=== PATIENT | female | born 1990 | race Caucasian/White ===

== ENCOUNTER 2020-08-11 10:35 | Inpatient (IN) ==
[2020-08-11] MEDS: LACTATED RINGERS 1,000 ML IV SCH ×2 (11:40→12:41)
[2020-08-11] MEDS ORDERED: BUTORPHANOL 2 MG/ML VIAL IV PRN (11:45)
[2020-08-11] MEDS ORDERED: BUTORPHANOL 1 MG/ML VIAL IV PRN (11:45)
[2020-08-11] MEDS ORDERED: OXYTOCIN/LR 20 UNIT/1,000 ML BAG IV PRN (11:45)
[2020-08-11] MEDS ORDERED: ONDANSETRON 4 MG/2 ML VIAL IV PRN ×2 (11:45→17:36)
[2020-08-11] MEDS ORDERED: hydrOXYzine HCL 25 MG/1 ML VIAL IM PRN (12:08)
[2020-08-11] MEDS ORDERED: PROMETHAZINE 25 MG/1 ML VIAL IM ONE (12:08)
[2020-08-11] MEDS ORDERED: ePHEDrine 50 MG/ML VIAL IV PRN (12:08)
[2020-08-11] MEDS ORDERED: ONDANSETRON 4 MG/2 ML VIAL IV ONE (12:08)
[2020-08-11] MEDS ORDERED: LACTATED RINGERS 1,000 ML IV ONE (12:08)
[2020-08-11] MEDS ORDERED: diphenhydrAMINE 50 MG/1 ML VIAL IV PRN ×2 (12:08)
[2020-08-11] MEDS ORDERED: NALOXONE 0.4 MG/ML VIAL IV PRN (12:08)
[2020-08-11] MEDS ORDERED: FAMOTIDINE 20 MG/2 ML VIAL IV ONE (12:08)
[2020-08-11 12:09] LABS: Basophils % 0.3 % (0.0-0.8); Eosinophils % 0.1 % (0.00-10.9); Hematocrit 40.9 VOL% (35.7-47.0); Hemoglobin 13.7 GM/DL (12.0-16.0); Immature Granulocytes % 0.5 %; Immature Granulocytes Absolute 0.06 #; Lymphocytes # 2.1 10*3/uL (1.4-4.0); Lymphocytes % 18.5 % (21.3-54.2); Mean Corpuscular HGB Conc 33.5 GM/DL (32-36); Mean Corpuscular Volume 90.1 FL (87-102); Mean Platelet Volume 11.8 FL (9.6-12.0); Monocytes % 7.3 % (1.7-12.7); Neutrophils % 73.3 % (38.7-73.9); Platelet Count 221 T/CUMM (130-400); Red Blood Count 4.54 MC/CUMM (3.8-5.5); Red Cell Distribution Width 13.2 % (9.3-17.3); White Blood Count 11.3 T/CUMM (4-12)
[2020-08-11 12:24] LABS: INR 0.9; PT Patient Result 9.4 SECS (9.8-11.9); Partial Thromboplastin Time 23.9 SECS (23.9-33.8)
[2020-08-11 12:27] LABS: Alanine Aminotransferase 27 U/L (13-56); Albumin 2.8 G/DL (3.4-5.0); Alkaline Phosphatase 127 U/L (45-117); Aspartate Amino Transferase 29 U/L (0-37); Bilirubin,Total < 0.39 MG/DL (0.2-1.0); Blood Urea Nitrogen 7 MG/DL (7-18); Calcium 8.6 MG/DL (8.5-10.1); Estimated Glom Filtration Rate 135 ML/MIN; Glucose 87 MG/DL (74-106); Osmolality,Calculated 269.8 MOS/KG (273-304); Total Protein 6.9 G/DL (6.4-8.3); Uric Acid 3.5 MG/DL (2.6-6.0)
[2020-08-11] MEDS ORDERED: fentaNYL 2 MCG/ROPIV 0.2% EPID 100 ML EPIDURAL SCH (12:30)
[2020-08-11 12:53] LABS: Bacteria,Urine Few /HPF (Few); Bilirubin,Urine Negative (Negative); Blood, Urine Moderate mg/dL (Negative); Glucose,Urine (UA) Negative (Negative); Ketones,Urine Negative (Negative); Mucus,Urine Occasional /LPF (Occasional); Nitrite,Urine Negative (Negative); Protein,Urine Negative; RBC,Urine 4 /HPF (0-4); Squamous Epithelial Cell,Urine Occasional /HPF (0-10); Urine Appearance CLEAR (Clear); Urine Color Yellow (Yellow); Urine Specific Gravity 1.006 (1.001-1.035); Urine Urobilinogen < 2.0 EU/DL (0.2-1.0); WBC,Urine 3 /HPF (0-6)
[2020-08-11] MEDS ORDERED: LIDOCAINE 1% 50 ML VIAL ONE (15:48)
[2020-08-11] MEDS ORDERED: miSOPROStoL 200 MCG TABLET ONE (15:48)
[2020-08-11] MEDS ORDERED: CARBOPROST TROMETHAMINE 250 MCG/ML AMP IM ONE (15:48)
[2020-08-11] MEDS ORDERED: SODIUM CHLORIDE 0.9% 0 ML IV ONE (15:48)
[2020-08-11] MEDS ORDERED: TRANEXAMIC ACID 1,000 MG/10 ML VIAL ONE (15:49)
[2020-08-11 17:15] LABS: Bilirubin,Urine Negative (Negative); Blood, Urine Negative (Negative); Glucose,Urine (UA) Negative (Negative); Ketones,Urine Negative (Negative); Mucus,Urine Occasional /LPF (Occasional); Nitrite,Urine Negative (Negative); Protein,Urine Negative; Urine Appearance CLEAR (Clear); Urine Color Colorless (Yellow); Urine Specific Gravity 1.002 (1.001-1.035); Urine Urobilinogen < 2.0 EU/DL (0.2-1.0)
[2020-08-11] MEDS ORDERED: oxyCODONE/ACETAMINOPHEN 5-325 MG TABLET PO PRN (17:36)
[2020-08-11] MEDS ORDERED: BENZOCAINE 20%/MENTHOL 0.5% SPRAY 56 GM CAN TOP PRN (17:36)
[2020-08-11] MEDS ORDERED: ACETAMINOPHEN 325 MG TABLET PO PRN (17:36)
[2020-08-11] MEDS ORDERED: LANOLIN 50% CREAM 0.3 OZ TUBE TOP PRN (17:36)
[2020-08-11] MEDS ORDERED: MEASLES/MUMPS/RUBELLA VACCINE 0.5 ML VIAL SUBCUT ONE (17:36)
[2020-08-11] MEDS ORDERED: RHO(D) IMMUNE GLOBULIN 300 MCG SYRINGE IM ONE (17:36)
[2020-08-11] MEDS ORDERED: WITCH HAZEL PADS 100/JAR TOP PRN (17:36)
[2020-08-11] MEDS ORDERED: HYDROCORTISONE 2.5% RECTAL CREAM 30 GM TUBE TOP PRN (17:36)
[2020-08-11] MEDS ORDERED: BISACODYL 10 MG SUPP RECTAL PRN (17:36)
[2020-08-11] MEDS ORDERED: OXYTOCIN/LR 20 UNIT/1,000 ML BAG IV ONE (17:36)
[2020-08-11] MEDS ORDERED: DIPH/TET/ACEL PERT BOOSTER VACCINE 0.5 ML VIAL IM ONE (17:36)
[2020-08-11 17:49] LABS: Cord Arterial Blood HCO3 18.9 MMOL/L
[2020-08-11 17:52] LABS: Cord Venous Blood HCO3 19.3 MMOL/L; Cord Venous Blood PCO2 43.7 MMHG; Cord Venous Blood PO2 27.1
[2020-08-11] MEDS: oxyCODONE/ACETAMINOPHEN 5-325 MG TABLET PO PRN (19:38)
[2020-08-11] MEDS: IBUPROFEN 800 MG TABLET PO PRN (19:38)
[2020-08-11] MEDS: DOCUSATE SODIUM 100 MG CAPSULE PO SCH (21:32)
[2020-08-12] MEDS: IBUPROFEN 800 MG TABLET PO PRN ×3 (01:12→19:35)
[2020-08-12 06:01] LABS: Basophils % 0.2 % (0.0-0.8); Eosinophils # 0.1 10*3/uL (0.0-0.87); Eosinophils % 0.5 % (0.00-10.9); Hematocrit 30.4 VOL% (35.7-47.0); Hemoglobin 10.3 GM/DL (12.0-16.0); Immature Granulocytes % 0.5 %; Immature Granulocytes Absolute 0.06 #; Lymphocytes # 2.3 10*3/uL (1.4-4.0); Lymphocytes % 18.3 % (21.3-54.2); Mean Corpuscular HGB Conc 33.9 GM/DL (32-36); Mean Corpuscular Volume 90.5 FL (87-102); Monocytes % 8.7 % (1.7-12.7); Neutrophils % 71.8 % (38.7-73.9); Platelet Count 171 T/CUMM (130-400); Red Blood Count 3.36 MC/CUMM (3.8-5.5); Red Cell Distribution Width 13.3 % (9.3-17.3); White Blood Count 12.6 T/CUMM (4-12)
[2020-08-12] MEDS: oxyCODONE/ACETAMINOPHEN 5-325 MG TABLET PO PRN ×2 (08:08→19:41)
[2020-08-12] MEDS: DOCUSATE SODIUM 100 MG CAPSULE PO SCH ×2 (08:10→21:12)
[2020-08-13] MEDS ORDERED: INFLUENZA VIRUS VACCINE 0.5 ML SYRINGE IM ONE (06:00)
[2020-08-13 07:58] VITALS: BP 132/78
[2020-08-13] MEDS: DOCUSATE SODIUM 100 MG CAPSULE PO SCH (08:43)
[2020-08-13] MEDS: IBUPROFEN 800 MG TABLET PO PRN (08:45)
== END 2020-08-13 11:35 | disposition home or self-care (01) | DRG 807 ==
LOC: N.LDOUT 10:35 → N.LD 10:42 → N.OB 21:23
PROVIDERS: ADMIT Obstetrics & Gynecology; ATTEND Specialist

== ENCOUNTER 2022-10-28 14:28 | Inpatient (IN) ==
[2022-10-28] MEDS ORDERED: miSOPROStoL 200 MCG TABLET RECTAL PRN (14:47)
[2022-10-28] MEDS ORDERED: TRANEXAMIC ACID 1,000 MG in SODIUM CHLORIDE 0.9% 100 ML IV PRN (14:47)
[2022-10-28] MEDS ORDERED: CARBOPROST TROMETHAMINE 250 MCG/ML AMP IM PRN (14:47)
[2022-10-28] MEDS ORDERED: METHYLERGONOVINE 0.2 MG/1 ML AMP IM PRN (14:47)
[2022-10-28] MEDS ORDERED: ONDANSETRON 4 MG/2 ML VIAL IV PRN (14:47)
[2022-10-28] MEDS ORDERED: OXYTOCIN/LR 20 UNIT/1,000 ML BAG IV ONE (14:47)
[2022-10-28] MEDS ORDERED: LACTATED RINGERS 500 ML IV PRN (14:47)
[2022-10-28] MEDS: BETAMETH SODIUM PHOS/ACETATE 30 MG/5 ML VIAL IM SCH (15:11)
[2022-10-28 15:26] LABS: Basophils % 0.3 % (0.0-0.8); Eosinophils % 0.2 % (0.00-10.9); Hematocrit 37.8 VOL% (35.7-47.0); Hemoglobin 12.8 GM/DL (12.0-16.0); Immature Granulocytes % 0.5 %; Immature Granulocytes Absolute 0.05 #; Lymphocytes # 2.1 10*3/uL (1.4-4.0); Mean Corpuscular HGB Conc 33.9 GM/DL (32-36); Mean Corpuscular Volume 89.6 FL (87-102); Mean Platelet Volume 11.7 FL (9.6-12.0); Monocytes # 0.8 10*3/uL (0.11-0.8); Monocytes % 8.2 % (1.7-12.7); Neutrophils % 67.8 % (38.7-73.9); Platelet Count 190 T/CUMM (130-400); Red Blood Count 4.22 MC/CUMM (3.8-5.5); Red Cell Distribution Width 13.1 % (9.3-17.3); White Blood Count 9.2 T/CUMM (4-12)
[2022-10-28] MEDS ORDERED: AMPICILLIN INJ 2,000 MG in SODIUM CHLORIDE 0.9% 100 ML IV ONE ×2 (20:00→21:30)
[2022-10-28] MEDS: LACTATED RINGERS 1,000 ML IV SCH (21:13)
[2022-10-28] MEDS ORDERED: ZALEPLON 5 MG CAPSULE PO PRN (21:29)
[2022-10-29] MEDS: AMPICILLIN INJ 1,000 MG in SODIUM CHLORIDE 0.9% 100 ML IV SCH ×3 (01:19→09:16)
[2022-10-29] MEDS: BETAMETH SODIUM PHOS/ACETATE 30 MG/5 ML VIAL IM SCH (02:51)
[2022-10-29] MEDS ORDERED: OXYTOCIN/LR 20 UNIT/1,000 ML BAG IV SCH (04:30)
[2022-10-29] MEDS ORDERED: ePHEDrine 50 MG/ML VIAL IV PRN (05:00)
[2022-10-29] MEDS ORDERED: FAMOTIDINE 20 MG/2 ML VIAL IV ONE (05:00)
[2022-10-29] MEDS ORDERED: CITRIC ACID/SODIUM CITRATE 30 ML UDCUP PO ONE (05:00)
[2022-10-29] MEDS ORDERED: hydrOXYzine HCL 25 MG/1 ML VIAL IM PRN (05:00)
[2022-10-29] MEDS ORDERED: diphenhydrAMINE 50 MG/1 ML VIAL IV PRN ×2 (05:00)
[2022-10-29] MEDS ORDERED: PROMETHAZINE 25 MG/1 ML VIAL IM ONE (05:00)
[2022-10-29] MEDS ORDERED: ONDANSETRON 4 MG/2 ML VIAL IV ONE (05:00)
[2022-10-29] MEDS ORDERED: NALOXONE 0.4 MG/ML VIAL IV PRN (05:00)
[2022-10-29] MEDS ORDERED: fentaNYL 2 MCG/ROPIV 0.2% EPID 100 ML EPIDURAL SCH (05:00)
[2022-10-29 08:25] LABS: Bilirubin,Urine Negative (Negative); Blood, Urine Negative (Negative); Glucose,Urine (UA) Negative (Negative); Ketones,Urine 80 mg/dL (Negative); Mucus,Urine Occasional /LPF (Occasional); Nitrite,Urine Negative (Negative); Protein,Urine Negative (Negative); RBC,Urine 1 /HPF (0-4); Urine Appearance Clear (Clear); Urine Color Yellow (Yellow); Urine Specific Gravity 1.025 (1.001-1.035); Urine Urobilinogen 0.2 eU/dL (<2.0)
[2022-10-29] MEDS: LACTATED RINGERS 1,000 ML IV SCH (09:51)
[2022-10-29] MEDS ORDERED: miSOPROStoL 200 MCG TABLET ONE (11:48)
[2022-10-29] MEDS ORDERED: TRANEXAMIC ACID 1,000 MG/10 ML VIAL ONE (11:48)
[2022-10-29] MEDS ORDERED: CARBOPROST TROMETHAMINE 250 MCG/ML AMP IM ONE (11:49)
[2022-10-29] MEDS ORDERED: METHYLERGONOVINE 0.2 MG/1 ML AMP ONE (11:49)
[2022-10-29] MEDS ORDERED: SODIUM CHLORIDE 0.9% 0 ML IV ONE (11:49)
[2022-10-29 13:26] LABS: Cord Venous Blood HCO3 19.4 MMOL/L; Cord Venous Blood PCO2 41.3 MMHG; Cord Venous Blood PO2 30.5
[2022-10-29] MEDS ORDERED: LANOLIN 50% CREAM 0.3 OZ TUBE TOP PRN (17:19)
[2022-10-29] MEDS ORDERED: BISACODYL 10 MG SUPP RECTAL PRN (17:19)
[2022-10-29] MEDS ORDERED: BENZOCAINE 20%/MENTHOL 0.5% SPRAY 56 GM CAN TOP PRN (17:19)
[2022-10-29] MEDS ORDERED: DIPH/TET/ACEL PERT BOOSTER VACCINE 0.5 ML VIAL IM ONE (17:19)
[2022-10-29] MEDS ORDERED: ACETAMINOPHEN 325 MG TABLET PO PRN (17:19)
[2022-10-29] MEDS ORDERED: ONDANSETRON 4 MG/2 ML VIAL IV PRN (17:19)
[2022-10-29] MEDS ORDERED: RHO(D) IMMUNE GLOBULIN 300 MCG SYRINGE IM ONE (17:19)
[2022-10-29] MEDS ORDERED: MEASLES/MUMPS/RUBELLA VACCINE 0.5 ML VIAL SUBCUT ONE (17:19)
[2022-10-29] MEDS ORDERED: OXYTOCIN/LR 20 UNIT/1,000 ML BAG IV ONE (17:19)
[2022-10-29] MEDS ORDERED: IBUPROFEN 800 MG TABLET PO PRN (17:19)
[2022-10-29] MEDS ORDERED: WITCH HAZEL PADS 100/JAR TOP PRN (17:19)
[2022-10-29] MEDS ORDERED: oxyCODONE/ACETAMINOPHEN 5-325 MG TABLET PO PRN ×2 (17:19)
[2022-10-29] MEDS ORDERED: HYDROCORTISONE 2.5% RECTAL CREAM 30 GM TUBE TOP PRN (17:19)
[2022-10-29] MEDS ORDERED: HYDROCORTISONE 1% CREAM 28 GM TUBE TOP PRN (19:01)
[2022-10-29] MEDS: DOCUSATE SODIUM 100 MG CAPSULE PO SCH (21:15)
[2022-10-30 05:31] LABS: Basophils % 0.1 % (0.0-0.8); Hematocrit 33.2 VOL% (35.7-47.0); Hemoglobin 11.1 GM/DL (12.0-16.0); Immature Granulocytes % 0.9 %; Immature Granulocytes Absolute 0.14 #; Lymphocytes # 1.4 10*3/uL (1.4-4.0); Mean Corpuscular HGB Conc 33.4 GM/DL (32-36); Mean Platelet Volume 12.2 FL (9.6-12.0); Monocytes # 1.1 10*3/uL (0.11-0.8); Platelet Count 172 T/CUMM (130-400); Red Blood Count 3.61 MC/CUMM (3.8-5.5); Red Cell Distribution Width 13.3 % (9.3-17.3)
[2022-10-30] MEDS: DOCUSATE SODIUM 100 MG CAPSULE PO SCH ×2 (10:00→22:26)
[2022-10-31 08:33] LABS: Basophils % 0.3 % (0.0-0.8); Eosinophils % 0.3 % (0.00-10.9); Hemoglobin 11.9 GM/DL (12.0-16.0); Immature Granulocytes % 1.6 %; Immature Granulocytes Absolute 0.18 #; Lymphocytes # 2.2 10*3/uL (1.4-4.0); Lymphocytes % 19.6 % (21.3-54.2); Mean Corpuscular HGB Conc 33.1 GM/DL (32-36); Mean Corpuscular Volume 92.8 FL (87-102); Mean Platelet Volume 11.6 FL (9.6-12.0); Monocytes # 0.9 10*3/uL (0.11-0.8); Monocytes % 8.1 % (1.7-12.7); Neutrophils % 70.1 % (38.7-73.9); Platelet Count 190 T/CUMM (130-400); Red Blood Count 3.88 MC/CUMM (3.8-5.5); Red Cell Distribution Width 13.7 % (9.3-17.3); White Blood Count 11.4 T/CUMM (4-12)
[2022-10-31 11:21] VITALS: BP 103/50
== END 2022-10-31 11:05 | disposition home or self-care (01) | DRG 807 ==
LOC: N.LDOUT 14:28 → N.LD 14:32 → N.OB 10-29 18:05
PROVIDERS: ADMIT Specialist; ATTEND Specialist